=== PATIENT | female | born 1970 | race Native Hawaiian/Other Pacific Islander ===

== ENCOUNTER 2016-12-02 13:42 | Outpatient (CLI) | payer BC | END 2016-12-02 14:45 | disposition home or self-care (01) | LOC: RAD 13:42 | DX: M54.2 Cervicalgia (principal) ==

== ENCOUNTER 2019-01-29 13:36 | Outpatient (CLI) | payer BC | END 2019-01-29 23:30 | disposition home or self-care (01) | LOC: RAD 13:36 | DX: M25.551 Pain in right hip (principal); M76.61 Achilles tendinitis, right leg; M76.62 Achilles tendinitis, left leg; M25.561 Pain in right knee ==